=== PATIENT | male | born 1980 | race Caucasian/White ===

== ENCOUNTER 2017-09-10 20:02 | Emergency (ER) | payer SELFPAY ==
[~2017-09-10] VITALS: Ht 182.9 cm; Wt 77.3 kg
[~2017-09-10 20:02] MED LIST: DOXYCYCLINE 10100 MG PO; NO HOME MEDICATIONS; PERCOCET 325 MG1 TA2 PO
[2017-09-10 20:04] VITALS: BP 136/96; PULSE 107; TEMP 98.8
[2017-09-10 20:33] LABS: BASO % 0.4 % (0.0-2.0); EOS # 0.1 (0.0-0.7); EOS % 0.7 % (0-4.0); GRAN # 5.4 (1.4-6.5); GRAN % 62.8 % (42.2-75.2); HEMATOCRIT 46.7 % (42.0-52.0); HEMOGLOBIN 16.2 g/dl (13.5-18.0); LYMPH # 2.3 (1.2-3.4); LYMPH % 27.3 % (20.0-51.0); MEAN CELL VOLUME 93 fl (80.0-100.0); MEAN CORPUSCULAR HEMOGLOBIN 32 pg (27.0-31.0); MEAN CORPUSCULAR HGB CONC 35 g/dl (33.0-37.0); MEAN PLATELET VOLUME 9.7 fl (7.4-10.4); MONO # 0.7 (0.1-0.6); MONO % 8.6 % (1.7-9.3); PLATELET COUNT 268 K/mm3 (130-400); RED BLOOD COUNT 5.03 M/mm3 (4.20-5.60); WHITE BLOOD COUNT 8.6 K/mm3 (4.8-10.8)
[2017-09-10 20:43] LABS: ADJUSTED CALCIUM 9.4 mg/dL (8.4-10.2); ALANINE AMINOTRANSFERASE 30 U/L (21-72); ALBUMIN 4.2 gm/dL (3.5-5.0); ALKALINE PHOSPHATASE 72 U/L (50-136); ANION GAP 9 mmol/L (7-16); BILIRUBIN,TOTAL 0.4 mg/dL (0.0-1.0); BLOOD UREA NITROGEN 13 mg/dL (9-20); CALCIUM 9.6 mg/dL (8.4-10.2); CARBON DIOXIDE 29 mmol/L (22-30); CHLORIDE 104 mmol/L (98-107); CREATININE, serum 1.02 mg/dL (0.66-1.25); GLUCOSE 95 mg/dL (74-106); LIPASE 55 U/L (23-300); POTASSIUM 3.8 mmol/L (3.4-5.0); SODIUM 141 mmol/L (137-145); TOTAL PROTEIN 7.8 gm/dL (6.4-8.2)
[2017-09-10 20:44] LABS: C-REACTIVE PROTEIN < 0.5 mg/dL (0.0-0.9)
[2017-09-10 22:52] LABS: COLLECTION METHOD CLEAN CATCH
[2017-09-10 23:11] LABS: AMORPHOUS CRYSTAL Present /uL; MUCOUS Present /lpf; PH 8 (5-8); SQUAMOUS EPITHELIAL None Seen /hpf; URINE APPEARANCE Turbid; URINE BACTERIA None Seen /hpf; URINE BILIRUBIN Negative (NEGATIVE); URINE BLOOD Negative (NEGATIVE); URINE COLOR Yellow; URINE GLUCOSE Negative (NEGATIVE); URINE KETONE Negative (NEGATIVE); URINE LEUKOCYTE ESTERASE Negative (NEGATIVE); URINE PROTEIN(semi-quant) Negative (NEGATIVE); URINE RBC None Seen /hpf; URINE UROBILINOGEN Negative (NEGATIVE); URINE WBC None Seen /hpf
[2017-09-10] MEDS ORDERED: PERCOCET 325 MG1 TA2 PO (23:15)
[2017-09-10] MEDS ORDERED: DOXYCYCLINE HY100 MG PO (23:15)
[2017-09-11 00:30] LABS: CHLAMYDIA/TRACH by PCR Male NOT DETECTED; Neisseria Gon by PCR Male NOT DETECTED
== END 2017-09-10 23:29 | disposition home or self-care (01) ==
LOC: COL.ER 20:02
PROVIDERS: Emergency Medicine
DX: N45.1 Epididymitis (principal); R10.30 Lower abdominal pain, unspecified; F17.210 Nicotine dependence, cigarettes, uncomplicated
CPT/HCPCS: J0696; J1170; J1885; J2270; J2405; J7030; Q9967

== ENCOUNTER 2018-06-17 01:29 | Emergency (ER) | payer SELFPAY ==
[~2018-06-17] VITALS: Ht 182.9 cm; Wt 77.3 kg
[~2018-06-17 01:29] MED LIST changes: +DOXYCYCLINE HY100 MG PO
[2018-06-17 01:34] VITALS: TEMP 97.6
[2018-06-17 01:52] LABS: BASO % 0.5 % (0.0-2.0); EOS # 0.2 (0.0-0.7); EOS % 2.1 % (0-4.0); GRAN # 4.6 (1.4-6.5); GRAN % 60.9 % (42.2-75.2); HEMATOCRIT 39.7 % (42.0-52.0); HEMOGLOBIN 14.5 g/dl (13.5-18.0); LYMPH % 25.6 % (20.0-51.0); MEAN CELL VOLUME 87 fl (80.0-100.0); MEAN CORPUSCULAR HEMOGLOBIN 32 pg (27.0-31.0); MEAN CORPUSCULAR HGB CONC 37 g/dl (33.0-37.0); MEAN PLATELET VOLUME 10.7 fl (7.4-10.4); MONO # 0.8 (0.1-0.6); MONO % 10.6 % (1.7-9.3); PLATELET COUNT 198 K/mm3 (130-400); RED BLOOD COUNT 4.59 M/mm3 (4.20-5.60)
[2018-06-17 02:06] LABS: ALBUMIN 3.8 gm/dL (3.5-5.0); BILIRUBIN,TOTAL 0.5 mg/dL (0.0-1.0); CALCIUM 9.1 mg/dL (8.4-10.2); CREATININE, serum 0.89 mg/dL (0.66-1.25); POTASSIUM 3.7 mmol/L (3.4-5.0); TOTAL PROTEIN 6.8 gm/dL (6.4-8.2)
[2018-06-17 02:27] LABS: COLLECTION METHOD CLEAN CATCH
[2018-06-17 02:50] LABS: AMORPHOUS CRYSTAL Present /uL; PH 8 (5-8); SQUAMOUS EPITHELIAL None Seen /hpf; URINE APPEARANCE Hazy; URINE BACTERIA Rare /hpf; URINE BILIRUBIN Negative (NEGATIVE); URINE BLOOD Negative (NEGATIVE); URINE COLOR Yellow; URINE GLUCOSE Negative (NEGATIVE); URINE KETONE Trace (NEGATIVE); URINE LEUKOCYTE ESTERASE Negative (NEGATIVE); URINE NITRATE Negative (NEGATIVE); URINE PROTEIN(semi-quant) Negative (NEGATIVE); URINE RBC 0-2 /hpf; URINE UROBILINOGEN Negative (NEGATIVE)
[2018-06-17 03:45] VITALS: BP 110/67; PULSE 67
== END 2018-06-17 03:46 | disposition home or self-care (01) ==
LOC: COL.ER 01:29
PROVIDERS: Emergency Medicine
DX: M54.5 Low back pain (principal); R10.32 Left lower quadrant pain; R10.31 Right lower quadrant pain; F17.210 Nicotine dependence, cigarettes, uncomplicated; F12.90 Cannabis use, unspecified, uncomplicated
CPT/HCPCS: J2765; J3010; J7030

== ENCOUNTER 2018-07-07 00:58 | Observation (INO) | payer SELFPAY ==
[~2018-07-07] VITALS: Ht 182.9 cm; Wt 77.4 kg
[2018-07-07 01:50] LABS: BASO % 0.7 % (0.0-2.0); EOS # 0.3 (0.0-0.7); EOS % 4.3 % (0-4.0); GRAN # 2.7 (1.4-6.5); GRAN % 46.8 % (42.2-75.2); HEMATOCRIT 43.1 % (42.0-52.0); HEMOGLOBIN 15.1 g/dl (13.5-18.0); LYMPH # 2.3 (1.2-3.4); LYMPH % 39.1 % (20.0-51.0); MEAN CELL VOLUME 91 fl (80.0-100.0); MEAN CORPUSCULAR HEMOGLOBIN 32 pg (27.0-31.0); MEAN CORPUSCULAR HGB CONC 35 g/dl (33.0-37.0); MEAN PLATELET VOLUME 10.2 fl (7.4-10.4); MONO # 0.5 (0.1-0.6); MONO % 8.9 % (1.7-9.3); PLATELET COUNT 217 K/mm3 (130-400); RED BLOOD COUNT 4.73 M/mm3 (4.20-5.60); REDCELL DISTRIBUTION WIDTH-CV 12.6 % (11.5-14.5)
[2018-07-07 02:03] LABS: ALBUMIN 3.5 gm/dL (3.5-5.0); BILIRUBIN,TOTAL 0.3 mg/dL (0.0-1.0); C-REACTIVE PROTEIN 0.6 mg/dL (0.0-0.9); CALCIUM 8.8 mg/dL (8.4-10.2); POTASSIUM 3.9 mmol/L (3.4-5.0); TOTAL PROTEIN 6.2 gm/dL (6.4-8.2)
[2018-07-07 03:27] LABS: COLLECTION METHOD CLEAN CATCH
[2018-07-07 04:26] LABS: AMORPHOUS CRYSTAL Present /uL; MUCOUS Present /lpf; PH 7 (5-8); SQUAMOUS EPITHELIAL 0-2 /hpf; URINE APPEARANCE Cloudy; URINE BACTERIA None Seen /hpf; URINE BILIRUBIN Negative (NEGATIVE); URINE BLOOD Negative (NEGATIVE); URINE COLOR Yellow; URINE GLUCOSE Negative (NEGATIVE); URINE KETONE Negative (NEGATIVE); URINE LEUKOCYTE ESTERASE Negative (NEGATIVE); URINE NITRATE Negative (NEGATIVE); URINE PROTEIN(semi-quant) Negative (NEGATIVE); URINE RBC 0-2 /hpf; URINE UROBILINOGEN Negative (NEGATIVE)
[2018-07-07 07:49] VITALS: BP 124/72; PULSE 65; TEMP 97.8
[2018-07-07 13:02] VITALS: BP 124/65; PULSE 65; TEMP 98.3
== END 2018-07-07 14:45 | disposition home or self-care (01) ==
LOC: COL.ER 00:58 → SURG 04:40
PROVIDERS: Emergency Medicine
DX: N45.3 Epididymo-orchitis (principal)
CPT/HCPCS: G0378; J0696; J1170; J1885; J1956; J2270; J2405; J7030

== ENCOUNTER 2018-08-01 20:07 | Emergency (ER) | payer SELFPAY ==
[~2018-08-01] VITALS: Ht 182.9 cm; Wt 81.8 kg
[2018-08-01 20:18] VITALS: TEMP 98.9
[2018-08-01 20:48] LABS: COLLECTION METHOD CLEAN CATCH
[2018-08-01 20:51] LABS: BASO % 0.5 % (0.0-2.0); EOS # 0.2 (0.0-0.7); EOS % 2.3 % (0-4.0); GRAN # 4.2 (1.4-6.5); GRAN % 53.3 % (42.2-75.2); HEMATOCRIT 46.5 % (42.0-52.0); HEMOGLOBIN 16.2 g/dl (13.5-18.0); LYMPH # 2.8 (1.2-3.4); LYMPH % 36.1 % (20.0-51.0); MEAN CELL VOLUME 91 fl (80.0-100.0); MEAN CORPUSCULAR HEMOGLOBIN 32 pg (27.0-31.0); MEAN CORPUSCULAR HGB CONC 35 g/dl (33.0-37.0); MONO # 0.6 (0.1-0.6); MONO % 7.5 % (1.7-9.3); PLATELET COUNT 213 K/mm3 (130-400); REDCELL DISTRIBUTION WIDTH-CV 12.5 % (11.5-14.5)
[2018-08-01 20:59] LABS: AMORPHOUS CRYSTAL Present /uL; PH 8 (5-8); SQUAMOUS EPITHELIAL None Seen /hpf; URINE APPEARANCE Hazy; URINE BACTERIA Rare /hpf; URINE BILIRUBIN Negative (NEGATIVE); URINE BLOOD Negative (NEGATIVE); URINE COLOR Yellow; URINE GLUCOSE Negative (NEGATIVE); URINE KETONE Negative (NEGATIVE); URINE LEUKOCYTE ESTERASE Negative (NEGATIVE); URINE NITRATE Negative (NEGATIVE); URINE PROTEIN(semi-quant) Negative (NEGATIVE); URINE RBC 0-2 /hpf; URINE UROBILINOGEN Negative (NEGATIVE)
[2018-08-01 21:04] LABS: ALANINE AMINOTRANSFERASE 41 U/L (21-72); ALKALINE PHOSPHATASE 62 U/L (50-136); ANION GAP 5 mmol/L (7-16); AST,SGOT 31 U/L (15-37); BILIRUBIN,TOTAL 0.3 mg/dL (0.0-1.0); BLOOD UREA NITROGEN 15 mg/dL (9-20); CALCIUM 9.4 mg/dL (8.4-10.2); CARBON DIOXIDE 30 mmol/L (22-30); CHLORIDE 106 mmol/L (98-107); CREATININE, serum 0.97 mg/dL (0.66-1.25); GLUCOSE 75 mg/dL (74-106); SODIUM 141 mmol/L (137-145); TOTAL PROTEIN 6.9 gm/dL (6.4-8.2)
[2018-08-01 21:06] LABS: C-REACTIVE PROTEIN < 0.5 mg/dL (0.0-0.9)
[2018-08-01] MEDS ORDERED: NORCO 325 MG-51 TAB PO (21:22)
[2018-08-01] MEDS ORDERED: BACTRIM DS 8001 TAB PO (21:22)
[2018-08-01 22:16] VITALS: BP 124/82; PULSE 80
== END 2018-08-01 22:18 | disposition home or self-care (01) ==
LOC: COL.ER 20:07
PROVIDERS: Family Medicine
DX: N45.1 Epididymitis (principal)
CPT/HCPCS: J1956; J2270; J2405; J7030

== ENCOUNTER 2019-01-29 21:27 | Emergency (ER) | payer SELFPAY ==
[~2019-01-29] VITALS: Ht 182.9 cm; Wt 77.3 kg
[~2019-01-29 21:27] MED LIST changes: +BACTRIM DS 8001 TAB PO; +NORCO 325 MG-51 TAB PO
[2019-01-29 21:40] VITALS: TEMP 99.9
[2019-01-29 22:25] LABS: BASO % 0.4 % (0.0-2.0); EOS # 0.2 (0.0-0.7); EOS % 2.4 % (0-4.0); GRAN # 3.6 (1.4-6.5); HEMATOCRIT 41.7 % (42.0-52.0); HEMOGLOBIN 14.5 g/dl (13.5-18.0); LYMPH # 2.2 (1.2-3.4); LYMPH % 33.3 % (20.0-51.0); MEAN CELL VOLUME 91 fl (80.0-100.0); MEAN CORPUSCULAR HEMOGLOBIN 32 pg (27.0-31.0); MEAN CORPUSCULAR HGB CONC 35 g/dl (33.0-37.0); MONO # 0.6 (0.1-0.6); MONO % 9.6 % (1.7-9.3); PLATELET COUNT 219 K/mm3 (130-400); RED BLOOD COUNT 4.58 M/mm3 (4.20-5.60); REDCELL DISTRIBUTION WIDTH-CV 12.3 % (11.5-14.5)
[2019-01-29 22:35] LABS: ALBUMIN 3.6 gm/dL (3.5-5.0); BILIRUBIN,TOTAL 0.2 mg/dL (0.0-1.0); CALCIUM 9.1 mg/dL (8.4-10.2); CREATININE, serum 0.98 (0.66-1.25); TOTAL PROTEIN 6.6 gm/dL (6.4-8.2)
[2019-01-29] MEDS ORDERED: LEVAQUIN 5500 MG/TA1 PO (23:08)
[2019-01-29 23:49] LABS: COLLECTION METHOD CLEAN CATCH
[2019-01-29 23:54] LABS: PH 6 (5-8); SQUAMOUS EPITHELIAL None Seen /hpf; URINE APPEARANCE Clear; URINE BACTERIA None Seen /hpf; URINE BILIRUBIN Negative (NEGATIVE); URINE BLOOD Negative (NEGATIVE); URINE COLOR Yellow; URINE GLUCOSE Negative (NEGATIVE); URINE KETONE Negative (NEGATIVE); URINE LEUKOCYTE ESTERASE Negative (NEGATIVE); URINE NITRATE Negative (NEGATIVE); URINE PROTEIN(semi-quant) Negative (NEGATIVE); URINE RBC 0-2 /hpf; URINE UROBILINOGEN Negative (NEGATIVE)
[2019-01-30 00:17] VITALS: BP 117/70; PULSE 67
== END 2019-01-30 00:20 | disposition home or self-care (01) ==
LOC: COL.ER 21:27
PROVIDERS: Emergency Medicine
DX: N50.82 Scrotal pain (principal); N45.1 Epididymitis; F17.210 Nicotine dependence, cigarettes, uncomplicated; V28.4XXA Motorcycle driver injured in noncollision transport accident in traffic accident, initial encounter; Y93.55 Activity, bike riding
CPT/HCPCS: A4216; J0696; J2270; J2405; J7030; Q9967

== ENCOUNTER 2019-05-09 14:22 | Emergency (ER) | payer SELFPAY ==
[~2019-05-09] VITALS: Ht 182.9 cm; Wt 81.8 kg
[~2019-05-09 14:22] MED LIST changes: +LEVAQUIN 5500 MG/TA1 PO
[2019-05-09 14:32] VITALS: BP 119/66; TEMP 98
[2019-05-09 16:53] VITALS: PULSE 87
== END 2019-05-09 16:55 | disposition home or self-care (01) ==
LOC: COL.ER 14:22
DX: S59.901A Unspecified injury of right elbow, initial encounter (principal); S59.911A Unspecified injury of right forearm, initial encounter; F17.210 Nicotine dependence, cigarettes, uncomplicated; W22.8XXA Striking against or struck by other objects, initial encounter; Y92.009 Unspecified place in unspecified non-institutional (private) residence as the place of occurrence of the external cause
CPT/HCPCS: J1885

== ENCOUNTER 2022-04-13 12:24 | Observation (INO) | payer SELFPAY ==
[~2022-04-13] VITALS: Ht 182.9 cm; Wt 84.0 kg
[2022-04-13] VITALS (9 sets, daily range): BP systolic 107–160; BP diastolic 61–91; PULSE 69–88; TEMP 97.5–98.9
[~2022-04-13 12:24] MED LIST changes: +CEPHALEXIN500 M1 PO; +PERCOCET 325 MG1 TA3 PO
[2022-04-13 14:17] LABS: BASO % 0.3 % (0.0-2.0); EOS # 0.1 K/mm3 (0.0-0.7); EOS % 1.6 % (0.0-4.0); GRAN # 5.4 K/mm3 (1.4-6.5); GRAN % 72.4 % (42.2-75.2); HEMATOCRIT 38.5 % (42.0-52.0); HEMOGLOBIN 13.7 g/dl (13.5-18.0); LYMPH # 1.1 K/mm3 (1.2-3.4); MEAN CELL VOLUME 91 fl (80.0-100.0); MEAN CORPUSCULAR HEMOGLOBIN 32 pg (27-31); MEAN CORPUSCULAR HGB CONC 36 g/dl (33.0-37.0); MEAN PLATELET VOLUME 11.1 fl (7.4-10.4); MONO # 0.8 K/mm3 (0.1-0.6); MONO % 10.6 % (1.7-9.3); PLATELET COUNT 150 K/mm3 (130-400); RED BLOOD COUNT 4.23 M/mm3 (4.20-5.60); REDCELL DISTRIBUTION WIDTH-CV 12.2 % (11.5-14.5)
[2022-04-13 14:32] LABS: C-REACTIVE PROTEIN 8.43 mg/dL (0.00-0.50); CALCIUM 9.1 mg/dL (8.4-10.2); CREATININE, serum 0.98 mg/dL (0.72-1.25)
--- NOTE | 2022-04-13 17:45 | NUR ---
AFTER THREE ATTEMPTS RECIEVED CALL BACK FROM DR PIÑA. INFORMED HIM PATIENT IS COMPLAINING OF SEVER PAIN AFTER MULTIPLE PAIN MEDS BEING ADMINISTERED. INFORMED HIM I GOT A TORB FOR ONE TIME 15MG OF TORADOL. HE STATED WE SHOULD SEE SOME IMPROVEMENT WITH THE TORADOL. NO NEW ORDERS GIVEN.
--- NOTE | 2022-04-13 19:23 | NUR ---
PATIENT THREATENED TO LEAVE. UNHOOKED FROM VITAL SIGNS. STATED HIS PAIN WASNT BEING CONTROLLED. EDUCATED PATIENT ON BENEFITS TO STAYING WELL INFORMED HIM THAT WE ARE WORKING ON GETTING HIS PAIN CONTROLLED. PATIENT AGREED TO STAY FOR NOW.
[2022-04-14 04:33] VITALS: BP 132/59; PULSE 66; TEMP 97.4
[2022-04-14 06:57] LABS: BASO % 0.1 % (0.0-2.0); GRAN # 7.4 K/mm3 (1.4-6.5); HEMOGLOBIN 11.8 g/dl (13.5-18.0); LYMPH # 0.6 K/mm3 (1.2-3.4); LYMPH % 7.2 % (20.0-51.0); MEAN CELL VOLUME 91 fl (80.0-100.0); MEAN CORPUSCULAR HEMOGLOBIN 32 pg (27-31); MEAN CORPUSCULAR HGB CONC 35 g/dl (33.0-37.0); MEAN PLATELET VOLUME 11.9 fl (7.4-10.4); MONO # 0.5 K/mm3 (0.1-0.6); MONO % 5.3 % (1.7-9.3); PLATELET COUNT 139 K/mm3 (130-400); RED BLOOD COUNT 3.68 M/mm3 (4.20-5.60); REDCELL DISTRIBUTION WIDTH-CV 11.9 % (11.5-14.5)
[2022-04-14 07:15] LABS: CALCIUM 8.5 mg/dL (8.4-10.2); CREATININE, serum 0.96 mg/dL (0.72-1.25); POTASSIUM 4.2 mmol/L (3.5-4.5)
[2022-04-14 07:20] LABS: HEMATOCRIT 33.4 % (42.0-52.0)
[2022-04-14 08:00] VITALS: BP 138/61; PULSE 75; TEMP 98.6
--- NOTE | 2022-04-14 10:04 | NUR ---
ELVI met with the patient to discuss discharge plan. The patient lives in [place] with his grandmother, Ophelia. He provides that he was just released from [facility] yesterday. He has been there since June. His plan was to return home with his grandmother. He reports independence with ADLs and does not have any DME. The patient does not have a PCP. He confirms he is self pay. ELVI discussed getting set up at the [facility] for primary care. The patient is agreeable to this. He receives his medications from [facility]. He states that the [facility] provided him with a couple vouchers for medications, but is unsure if these will work for the medications that will be prescribed here. He states that he will have his mother, Genny Juarez (ph#[phone]), bring the vouchers up here, to find out if they are usable. He states that if he cannot use them, then he would need help paying for his medications. The patient does not have a DPOA-HC. He states that he is not and has three children. Two of his children are 18 and older: Steve and Jackie Hinds. ELVI informed him how his two children would be his legal next of kin. The patient verbalized understanding and was then interested in obtaining a DPOA-HC form. ELVI provided. The patient plans to return to his grandmother's home upon discharge. ELVI contacted [facility] and secured the patient an appointment on 05/04 at 1245. ELVI informed the community planner of the appointment. His orders will need to be faxed to [facility] at [phone]. *Discharge plan: home with grandmother*
[2022-04-14 11:52] VITALS: BP 133/64; PULSE 83; TEMP 98.1
--- NOTE | 2022-04-14 15:14 | NUR ---
Shavon: No tenriism preference Situation: color checker roving or yarn stopped by room on rounds Background: Pt was resting and content Assessment: Pt appreciated the visit Recommendation: color checker roving or yarn will follow up as needed
--- NOTE | 2022-04-14 15:33 | NUR ---
PATIENT STATED HE WANTS TO LEAVE AMA. INFORMED HIM MULTPILE TIMES ON THE BENEFIT OF STAYING AND RECIEVING IV ANTIBIOTICS AND OTHER CARE/TREATMENT. PATIENT STATED HE IS STILL GOING TO LEAVE. HOSPITALIST INFORMED WELL SURGICAL PA. SURGICLA PA ALSO SPOKE WITH THE PATIENT. PATIENT IS STILL UNWILLING TO STAY. IV DISCONTINUED. CHARGE NURSE AND KILN TESTER AWARE.
[2022-04-14] MEDS ORDERED: NORCO 325 MG-51 TAB PO (15:43)
[2022-04-14] MEDS ORDERED: AMOXICILLIN 8751 TAB PO (15:43)
--- NOTE | 2022-04-14 15:56 | NUR ---
The patient is leaving Against Medical Advice. ELVI faxed the patient's orders to [facility].
--- NOTE | 2022-04-14 16:16 | NUR ---
INFORMED PATIENT ORAL ANTIBIOTICS WERE SENT TO HIS PHARMACY. INFORMED HIM OF FOLLOW UP APT AT DR AGUDELO OFFICE. IV TAKEN OUT EARLIER. AMA FORM SIGNED
== END 2022-04-14 15:45 | disposition left against medical advice (07) ==
LOC: COL.ER 12:24 → SURG 15:20 → COL.ER 15:20 → SURG 04-14 15:45
PROVIDERS: Emergency Medicine; Physician Assistant; ADMIT Student in an Organized Health Care Education/Training Program
DX: M65.9 Synovitis and tenosynovitis, unspecified (principal); Z87.891 Personal history of nicotine dependence
CPT/HCPCS: G0378; J1100; J1885; J2250; J2270; J2543; J2704; J2795; J3010; J3370; J7030; J7040; J7050

== ENCOUNTER 2022-04-28 21:50 | Inpatient (IN) | payer SELFPAY ==
[~2022-04-28] VITALS: Ht 182.9 cm; Wt 84.1 kg
[~2022-04-28 21:50] MED LIST changes: +AMOXICILLIN 8751 TAB PO
[2022-04-29] VITALS (16 sets, daily range): BP systolic 106–141; BP diastolic 64–91; PULSE 51–77; TEMP 97.7–98.8
[2022-04-29 02:28] LABS: BASO # 0.1 K/mm3 (0.0-0.2); BASO % 0.8 % (0.0-2.0); EOS # 0.3 K/mm3 (0.0-0.7); EOS % 4.4 % (0.0-4.0); GRAN # 4.5 K/mm3 (1.4-6.5); GRAN % 58.1 % (42.2-75.2); HEMOGLOBIN 12.6 g/dl (13.5-18.0); LYMPH # 2.2 K/mm3 (1.2-3.4); LYMPH % 27.9 % (20.0-51.0); MEAN CELL VOLUME 93 fl (80.0-100.0); MEAN CORPUSCULAR HEMOGLOBIN 32 pg (27-31); MEAN CORPUSCULAR HGB CONC 35 g/dl (33.0-37.0); MEAN PLATELET VOLUME 10.9 fl (7.4-10.4); MONO # 0.7 K/mm3 (0.1-0.6); MONO % 8.5 % (1.7-9.3); PLATELET COUNT 246 K/mm3 (130-400); REDCELL DISTRIBUTION WIDTH-CV 12.4 % (11.5-14.5)
[2022-04-29 02:32] LABS: HEMATOCRIT 36.3 % (42.0-52.0)
[2022-04-29 02:38] LABS: ALBUMIN 2.7 gm/dL (3.5-5.0); BILIRUBIN,TOTAL 0.2 mg/dL (0.2-1.2); CALCIUM 8.5 mg/dL (8.4-10.2); CREATININE, serum 0.97 mg/dL (0.72-1.25); POTASSIUM 3.5 mmol/L (3.5-4.5); TOTAL PROTEIN 5.3 gm/dL (6.2-8.1)
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
--- NOTE | 2022-04-29 06:07 | NUR ---
END OF SHIFT NOTE: PATIENT ARRIVED TO UNIT AT [facility]. PATIENT RECEIVED SEVERAL DOSES OF PRN DILAUDID. PATIENT UPSET THAT HE IS UNABLE TO DRINK PER DRS ORDER. PATIENT EDUCATED ON IMPORTANCE OF REMAINING NPO.
--- NOTE | 2022-04-29 16:57 | NUR ---
SW informed patient came from procedure and was in pain. Suggested to come back to complete intake. SW will continue to follow.
--- NOTE | 2022-04-29 19:28 | NUR ---
BEGINNING OF SHIFT NOTE: PATIENT RESTING QUIETLY IN BED. PATIENT DENIES PAIN, N/V SHORTNESS OF BREATH/CHEST PAIN. PATIENT REQUSTS TO GO TO BATHROOM D/T PASSING A LOT OF GAS AND PATIENT ASSISTED TO RESTROOM.
--- NOTE | 2022-04-30 07:12 | NUR ---
SHIFT NOTE: PATIENT RESTED QUIETLY THIS SHIFT. PATIENT REQUESTED PAIN MEDICATION REGULARLY. PATIENT ASKED FOR PAIN MEDICATION AND THIS NURSE HAD TO WAKE PATIENT TO GIVEN HIM MEDICATION. PATIENT CALLED [facility] AN HOUR LATER FOR ADDITIONAL PAIN MEDICATION. PATIENT REMAINED ON IV ANTIBIOTICS AND FLUIDS THIS SHIFT AND TOLERATED WELL.
[2022-04-30 07:52] VITALS: BP 129/74; PULSE 59; TEMP 98.3
[2022-04-30 07:55] LABS: BASO % 0.7 % (0.0-2.0); EOS # 0.4 K/mm3 (0.0-0.7); EOS % 5.9 % (0.0-4.0); GRAN # 3.1 K/mm3 (1.4-6.5); GRAN % 52.4 % (42.2-75.2); HEMOGLOBIN 12.6 g/dl (13.5-18.0); LYMPH # 1.9 K/mm3 (1.2-3.4); LYMPH % 32.3 % (20.0-51.0); MEAN CELL VOLUME 91 fl (80.0-100.0); MEAN CORPUSCULAR HEMOGLOBIN 32 pg (27-31); MEAN CORPUSCULAR HGB CONC 35 g/dl (33.0-37.0); MEAN PLATELET VOLUME 10.5 fl (7.4-10.4); MONO # 0.5 K/mm3 (0.1-0.6); MONO % 8.4 % (1.7-9.3); PLATELET COUNT 214 K/mm3 (130-400); RED BLOOD COUNT 3.95 M/mm3 (4.20-5.60); REDCELL DISTRIBUTION WIDTH-CV 12.1 % (11.5-14.5)
[2022-04-30 08:00] LABS: HEMATOCRIT 36.1 % (42.0-52.0)
[2022-04-30 08:07] LABS: CALCIUM 7.9 mg/dL (8.4-10.2); CREATININE, serum 0.8 mg/dL (0.72-1.25); POTASSIUM 3.8 mmol/L (3.5-4.5)
[2022-04-30 08:34] VITALS: PULSE 70
[2022-04-30 12:00] VITALS: BP 130/67; PULSE 67; PULSE 68; TEMP 99
--- NOTE | 2022-04-30 15:01 | NUR ---
Pattern Drafter attempted to meet with patient for intake assessment/discharge planning; patient is in the bathroom at this time. Pattern Drafter to re-attempt.
[2022-04-30 15:59] VITALS: BP 129/76; PULSE 67; TEMP 98.7
--- NOTE | 2022-04-30 18:59 | NUR ---
RECEIVED CHANGE OF SHIFT REPORT FROM DAY SHIFT RN.
--- NOTE | 2022-04-30 19:18 | NUR ---
OBSERVED PATIENT SLEEPING AT THIS TIME, DOES NOT WAKE WHEN NURSING ENTER ROOM ON ROUNDS. BREATHING NONLABORED AND EVEN. IV FLUIDS INFUSING WITH NO PROBLEMS.
--- NOTE | 2022-04-30 19:51 | NUR ---
REPORTED BY STAFF PCT, PATIENT CURSING AT STAFF USING FOUL LANGUAGE, REFUSING TO HAVE VS TAKEN AND NOT WANTING STAFF IN ROOM AT THIS TIME.
--- NOTE | 2022-04-30 22:50 | NUR ---
PATIENT SLEEPING, DOES NOT WAKE WHEN NURSING ENTER ROOM TO ADMIN SCHEDULED IV ANTIBIOTICS. BREATHING NONLABORED AND EVEN. IV FLUIDS INFUSING WITH NO PROBLEMS.
[2022-04-30 23:38] VITALS: BP 133/61; PULSE 66
--- NOTE | 2022-05-01 00:23 | NUR ---
SCHEDULED ANTIBIOTICS ADMINISTERED. PATIENT AWAKENED BRIEFLY FOR MEDS GIVEN, NO COMPLAINTS REPORTED AT THIS TIME. BREATHING NONLABORED AND EVEN. IV FLUIDS INFUSING WITH NO PROBLEMS.
--- NOTE | 2022-05-01 06:59 | NUR ---
CHANGE OF SHIFT REPORT GIVEN TO DAY SHIFT RNVICKEY.
[2022-05-01 08:00] VITALS: BP 124/77; PULSE 59; TEMP 98
--- NOTE | 2022-05-01 09:02 | NUR ---
VSS, PT A&O X4, ABLE TO MAKE NEEDS KNOWN, RESTING IN BED, REPORTS PAIN TO HAND, PAIN MEDICATION GIVEN PER ORDER/REQUEST, FALL PRECAUTIONS IN PLACE, CALL LIGHT IN REACH
[2022-05-01] MEDS ORDERED: CIPRO 500MG TA500 MG PO (12:01)
[2022-05-01] MEDS ORDERED: TYLENOL 325MG325 MG PO (12:02)
[2022-05-01] MEDS ORDERED: ROXICODONE15 MG PO (12:02)
--- NOTE | 2022-05-01 14:00 | NUR ---
pt dismissed to home today, PT EDUCATED ON DISMISSAL INSTRUCTIONS/MEDICATION INSTRUCTIONS/FOLLOW UP INSTRUCTIONS, PT VOICED NO QUESTIONS/CONCERNS AT TIME OF DISMISSAL, PT GIVEN SUPPLIES FOR DRESSING CHANGES PER PHYS REQUEST, PT AMBULATED TO EXIT, NO FURTHER CONCERNS
--- NOTE | 2022-05-01 14:47 | NUR ---
Machine Hostler attempted to meet with patient to discuss discharge planning. Patient confirmed he lives in [place]. SW then asked who patient lives with and patient states "no more questions" and closed his eyes and turned away. SW spoke with Hospitalist and patient to be discharged home today.
== END 2022-05-01 14:03 | disposition home or self-care (01) | DRG 513 ==
LOC: MEDICAL 21:50 → SURG 23:43
PROVIDERS: Nurse Practitioner Family; Orthopaedic Surgery; ADMIT Student in an Organized Health Care Education/Training Program
PROC: 0LB80ZZ Excision of Left Hand Tendon, Open Approach (ICD-10-PCS; principal; 2022-04-29 11:00)
DX: M65.88 Other synovitis and tenosynovitis, other site (principal); L03.114 Cellulitis of left upper limb; S66.195A Other injury of flexor muscle, fascia and tendon of left ring finger at wrist and hand level, initial encounter; F17.210 Nicotine dependence, cigarettes, uncomplicated; S66.115A Strain of flexor muscle, fascia and tendon of left ring finger at wrist and hand level, initial encounter; Y08.89XA Assault by other specified means, initial encounter; Y93.89 Activity, other specified; Y92.89 Other specified places as the place of occurrence of the external cause
CPT/HCPCS: OP; J1170; J1885; J2405; J2543; J2704; J3010; J3370; J7030; J7050

== ENCOUNTER 2023-10-22 17:45 | Emergency (ER) | payer SELFPAY ==
[~2023-10-22] VITALS: Ht 182.9 cm; Wt 81.8 kg
[~2023-10-22 17:45] MED LIST changes: +CIPRO 500MG TA500 MG PO; +ROXICODONE15 MG PO; +TYLENOL 325MG325 MG PO
[2023-10-22 18:06] VITALS: TEMP 98.2
[2023-10-22 18:23] LABS: COLLECTION METHOD CLEAN CATCH
[2023-10-22] MEDS ORDERED: NS 1,000 ML IV ONE (18:30)
[2023-10-22] MEDS ORDERED: Ondansetron 4 MG/2 ML VIAL IV ONE (18:30)
[2023-10-22] MEDS ORDERED: Ketorolac 30 MG/ML VIAL IV ONE (18:30)
[2023-10-22 18:42] LABS: URINE APPEARANCE Hazy (CLEAR/HAZY); URINE BACTERIA Occasional /hpf (NONE SEEN); URINE BLOOD Negative (NEGATIVE); URINE COLOR YELLOW (YELLOW); URINE GLUCOSE Negative (NEGATIVE); URINE KETONE Negative (NEGATIVE); URINE NITRATE Negative (NEGATIVE); URINE PROTEIN(semi-quant) TRACE (BEGATIVE); URINE UROBILINOGEN 0.2 E.U/dL (0.2-1.0)
[2023-10-22 18:43] LABS: AMORPHOUS CRYSTAL Present (NOT PRESENT); SQUAMOUS EPITHELIAL 0-2 /hpf (0-10)
[2023-10-22 18:48] LABS: BASO % 0.6 % (0.0-2.0); EOS # 0.1 K/mm3 (0.0-0.7); EOS % 2.7 % (0.0-4.0); GRAN # 2.5 K/mm3 (1.4-6.5); GRAN % 48.4 % (42.2-75.2); HEMATOCRIT 46.7 % (42.0-52.0); HEMOGLOBIN 16.1 g/dl (13.5-18.0); LYMPH % 37.8 % (20.0-51.0); MEAN CELL VOLUME 91 fl (80.0-100.0); MEAN CORPUSCULAR HEMOGLOBIN 32 pg (27-31); MEAN CORPUSCULAR HGB CONC 35 g/dl (33.0-37.0); MONO # 0.6 K/mm3 (0.1-0.6); MONO % 10.5 % (1.7-9.3); PLATELET COUNT 225 K/mm3 (130-400); RED BLOOD COUNT 5.11 M/mm3 (4.20-5.60)
[2023-10-22] MEDS ORDERED: Morphine 4 MG/ML VIAL IV ONE (19:00)
[2023-10-22 19:11] LABS: ALBUMIN 3.7 gm/dL (3.5-5.0); BILIRUBIN,TOTAL 0.3 mg/dL (0.2-1.2); C-REACTIVE PROTEIN 0.15 mg/dL (0.00-0.50); CALCIUM 9.7 mg/dL (8.4-10.2); CREATININE, serum 1.01 mg/dL (0.72-1.25); POTASSIUM 3.4 mmol/L (3.5-4.5); TOTAL PROTEIN 6.9 gm/dL (6.2-8.1)
[2023-10-22] MEDS ORDERED: Iohexol 300 - 100 ML VIAL IV ONE (19:29)
[2023-10-22] MEDS ORDERED: Home HYDROcodone/Acetaminophen 5/325 MG #4 TABS/PACK PO ONE (20:30)
[2023-10-22] MEDS ORDERED: Ciprofloxacin 500 MG TAB PO ONE (20:30)
[2023-10-22] MEDS ORDERED: CIPRO 500MG TA500 MG PO (20:44)
[2023-10-22 20:52] VITALS: BP 133/87; PULSE 82
== END 2023-10-22 20:52 | disposition home or self-care (01) ==
LOC: COL.ER 17:45
PROVIDERS: Nurse Practitioner
DX: N50.812 Left testicular pain (principal); R10.32 Left lower quadrant pain; R11.0 Nausea; F17.210 Nicotine dependence, cigarettes, uncomplicated
CPT/HCPCS: J1885; J2270; J2405; J7030; Q9967